=== PATIENT | female | born 1930 | race Caucasian/White ===

== ENCOUNTER 2017-06-19 20:40 | Inpatient (IN) | payer OTHER ==
[2017-06-19] MEDS ORDERED: NITROGLYCERIN (SL) 0.4 MG TAB SL (21:00)
[2017-06-19] MEDS: NITROGLYCERIN 2% 1 GM OINT PKT TD (21:03)
[2017-06-19] MEDS: ASPIRIN 81 MG TAB PO (21:03)
[2017-06-19 21:16] LABS: ABNORMAL IP MESSAGE 1; HEMATOCRIT 37.7 % (37.0-47.0); HEMOGLOBIN 12.2 g/dl (12.0-16.0); MEAN CORPUSCULAR HEMOGLOBIN 29.3 pg (29.0-33.0); MEAN CORPUSCULAR HGB CONC 32.4 g/dl (32.0-37.0); MEAN CORPUSCULAR VOLUME 90.6 fl (82.0-101.0); MEAN PLATELET VOLUME 9.7 fl (7.4-10.4); PLATELET COUNT 449 10^3/UL (140-415); RED BLOOD COUNT 4.16 10^6/ul (4.20-5.40); RED CELL DISTRIBUTION WIDTH 14.3 % (11.5-14.5)
[2017-06-19 21:16] LABS: WHITE BLOOD COUNT 15.4 10^3/ul (4.8-10.8)
[2017-06-19 21:26] LABS: ADD MAN DIFF? YES; POSITIVE DIFF @See below
[2017-06-19] MEDS: ONDANSETRON 4 MG INJ IV (21:31)
[2017-06-19] MEDS: morphine 4 MG/ML VIAL IV (21:31)
[2017-06-19 21:36] LABS: ANION GAP 12 (8-16); BLOOD UREA NITROGEN 15 mg/dl (7-20); CALCIUM 9.7 mg/dl (8.4-10.2); CARBON DIOXIDE 29 mmol/L (21-31); CHLORIDE 101 mmol/L (97-110); CREATININE 0.67 mg/dl (0.44-1.00); GLUCOSE 104 mg/dl (70-220); POTASSIUM 4.2 mmol/L (3.5-5.1); SODIUM 138 mmol/L (135-144)
[2017-06-19 21:47] LABS: TROPONIN-I 0.016 ng/ml (0.00-0.12)
[2017-06-19 22:02] LABS: ANISOCYTOSIS 1+ (0-0); BAND NEUTROPHILS #M 0.6 10^3/ul (0.0-0.6); BAND NEUTROPHILS % (M) 4 % (0-4); EOSINOPHILS % (M) 1 % (0-7); LYMPHOCYTES #M 1.2 10^3/ul (0.8-2.9); LYMPHOCYTES % (M) 8 % (15-51); MICROCYTOSIS 1+ (0-0); MONOCYTES % (M) 7 % (0-11); MYELOCYTES #M 0.4 10^3/ul (0.0-0.0); MYELOCYTES % (M) 3 % (0-0); PLATELET ESTIMATE INCREASED; POLYCHROMASIA 1+ (0-0); PROMYELOCYTES #M 0.3 10^3/ul (0-0); PROMYELOCYTES % (M) 2 % (0-0); SEG NEUT #M 11.6 10^3/ul (1.6-7.5); SEGMENTED NEUTROPHILS (M) % 75 % (39-77); SMUDGE%M 1 % (0-0)
[2017-06-19] MEDS ORDERED: VANCOMYCIN IV PER PHARMACY XX (22:30)
[2017-06-19] MEDS ORDERED: NACL 0.9% 3 ML SYG IV (22:30)
[2017-06-19] MEDS ORDERED: ACETAMINOPHEN 325 MG TAB PO (22:30)
[2017-06-19] MEDS ORDERED: ZOLPIDEM 5 MG TAB PO (22:30)
[2017-06-19] MEDS ORDERED: DOCUSATE SODIUM 100 MG CAP PO (22:30)
[2017-06-19] MEDS ORDERED: ONDANSETRON 4 MG INJ IV (22:30)
[2017-06-19] MEDS: CEFEPIME 1GM/50 ML (PMX) 50 ML IVPB (22:35)
[2017-06-19 23:03] LABS: LACTIC ACID 0.8 mmol/L (0.5-2.0)
[2017-06-19] MEDS: VANCOMYCIN 1 GM (PMX) 250 ML IVPB (23:52)
[2017-06-20 03:44] LABS: LACTIC ACID 1.1 mmol/L (0.5-2.0)
[2017-06-20 04:09] LABS: CREATINE KINASE < 20 IU/L (23-200)
[2017-06-20 04:19] LABS: CK-MB 0.45 ng/ml (0.0-2.4); TROPONIN-I 0.025 ng/ml (0.00-0.12)
[2017-06-20 06:27] LABS: WHITE BLOOD COUNT 13.4 10^3/ul (4.8-10.8)
[2017-06-20 06:27] LABS: ABNORMAL IP MESSAGE 1; HEMATOCRIT 30.9 % (37.0-47.0); HEMOGLOBIN 10.1 g/dl (12.0-16.0); MEAN CORPUSCULAR HEMOGLOBIN 29.6 pg (29.0-33.0); MEAN CORPUSCULAR HGB CONC 32.7 g/dl (32.0-37.0); MEAN CORPUSCULAR VOLUME 90.6 fl (82.0-101.0); MEAN PLATELET VOLUME 9.8 fl (7.4-10.4); PLATELET COUNT 378 10^3/UL (140-415); RED BLOOD COUNT 3.41 10^6/ul (4.20-5.40); RED CELL DISTRIBUTION WIDTH 14.5 % (11.5-14.5)
[2017-06-20 06:44] LABS: LACTIC ACID 0.6 mmol/L (0.5-2.0)
[2017-06-20] MEDS ORDERED: LEVOTHYROXINE 88 MCG TAB PO (07:00)
[2017-06-20 07:09] LABS: ANION GAP 19 (8-16); BLOOD UREA NITROGEN 13 mg/dl (7-20); CALCIUM 9.1 mg/dl (8.4-10.2); CARBON DIOXIDE 23 mmol/L (21-31); CHLORIDE 101 mmol/L (97-110); CREATININE 0.58 mg/dl (0.44-1.00); GLUCOSE 94 mg/dl (70-220); MAGNESIUM 1.6 mg/dl (1.7-2.5); POTASSIUM 4.3 mmol/L (3.5-5.1); SODIUM 139 mmol/L (135-144)
[2017-06-20 07:11] LABS: ADD MAN DIFF? YES; POSITIVE DIFF @See below
[2017-06-20] MEDS ORDERED: ENOXAPARIN 40 MG/0.4 ML SYG SC (09:00)
[2017-06-20 09:10] LABS: CREATINE KINASE < 20 IU/L (23-200)
[2017-06-20 09:14] LABS: CK-MB 0.42 ng/ml (0.0-2.4); TROPONIN-I 0.017 ng/ml (0.00-0.12)
[2017-06-20] MEDS: LEVOTHYROXINE 100 MCG TAB PO (09:21)
[2017-06-20] MEDS: ASPIRIN (EC) 81 MG TAB PO (09:21)
[2017-06-20] MEDS: CEFEPIME 1GM/50 ML (PMX) 50 ML IVPB ×2 (09:21→20:55)
[2017-06-20] MEDS: CLOPIDOGREL 75 MG TAB PO (10:20)
[2017-06-20 11:50] LABS: ANISOCYTOSIS 1+ (0-0); BAND NEUTROPHILS #M 0.5 10^3/ul (0.0-0.6); BAND NEUTROPHILS % (M) 4 % (0-4); BURR CELLS 2+ (0-0); EOSINOPHILS % (M) 3 % (0-7); GIANT THROMBO% (M) 2 % (0-0); LYMPHOCYTES #M 2.1 10^3/ul (0.8-2.9); LYMPHOCYTES % (M) 16 % (15-51); METAMYELOCYTES #M 0.1 10^3/ul (0.0-0.0); METAMYELOCYTES %M 1 % (0-0); MICROCYTOSIS 1+ (0-0); MONOCYTE #M 0.5 10^3/ul (0.3-0.9); MONOCYTES % (M) 4 % (0-11); MYELOCYTES #M 0.1 10^3/ul (0.0-0.0); MYELOCYTES % (M) 1 % (0-0); PLATELET ESTIMATE NORMAL; POIKILOCYTOSIS 2+ (0-0); POLYCHROMASIA 1+ (0-0); SEG NEUT #M 9.7 10^3/ul (1.6-7.5); SEGMENTED NEUTROPHILS (M) % 72 % (39-77); SMUDGE%M 4 % (0-0)
[2017-06-20] MEDS: SUCRALFATE (100 MG/ML) 10ML CUP GTB ×3 (13:05→20:55)
[2017-06-20] MEDS: MAGNESIUM SULFATE 2 GM/50 ML 50 ML IVPB (13:06)
[2017-06-20] MEDS: PANTOPRAZOLE (EC) 40 MG TAB PO (17:34)
[2017-06-20] MEDS: morphine 2 MG INJ IV (19:23)
[2017-06-20] MEDS: ATORVASTATIN 10 MG TAB PO (20:55)
[2017-06-20] MEDS: VANCOMYCIN 500MG/NS (PMX) 100 ML IVPB (22:42)
[2017-06-21] MEDS: PANTOPRAZOLE (EC) 40 MG TAB PO ×2 (06:12→18:19)
[2017-06-21] MEDS: LEVOTHYROXINE 100 MCG TAB PO (06:12)
[2017-06-21] MEDS: morphine 2 MG INJ IV ×4 (06:55→22:40)
[2017-06-21 07:11] LABS: WHITE BLOOD COUNT 12.9 10^3/ul (4.8-10.8)
[2017-06-21 07:11] LABS: ABNORMAL IP MESSAGE 1; HEMATOCRIT 35.3 % (37.0-47.0); HEMOGLOBIN 11.3 g/dl (12.0-16.0); MEAN CORPUSCULAR HEMOGLOBIN 29.8 pg (29.0-33.0); MEAN CORPUSCULAR VOLUME 93.1 fl (82.0-101.0); MEAN PLATELET VOLUME 9.8 fl (7.4-10.4); PLATELET COUNT 358 10^3/UL (140-415); RED BLOOD COUNT 3.79 10^6/ul (4.20-5.40); RED CELL DISTRIBUTION WIDTH 14.5 % (11.5-14.5)
[2017-06-21 07:12] LABS: ADD MAN DIFF? YES; POSITIVE DIFF @See below
[2017-06-21 09:40] LABS: ANISOCYTOSIS 2+ (0-0); BAND NEUTROPHILS #M 0.9 10^3/ul (0.0-0.6); BAND NEUTROPHILS % (M) 7 % (0-4); BASOPHIL #M 0.1 10^3/ul (0.0-0.0); BASOPHILS % (M) 1 % (0-2); EOSINOPHILS % (M) 4 % (0-7); GIANT THROMBO% (M) 1 % (0-0); LYMPHOCYTES #M 1.2 10^3/ul (0.8-2.9); LYMPHOCYTES % (M) 10 % (15-51); METAMYELOCYTES #M 0.3 10^3/ul (0.0-0.0); METAMYELOCYTES %M 3 % (0-0); MICROCYTOSIS 2+ (0-0); MONOCYTE #M 0.6 10^3/ul (0.3-0.9); MONOCYTES % (M) 5 % (0-11); MYELOCYTES #M 0.5 10^3/ul (0.0-0.0); MYELOCYTES % (M) 4 % (0-0); PLATELET ESTIMATE NORMAL; POIKILOCYTOSIS 1+ (0-0); POLYCHROMASIA 3+ (0-0); SEG NEUT #M 8.6 10^3/ul (1.6-7.5); SEGMENTED NEUTROPHILS (M) % 66 % (39-77)
[2017-06-21 09:41] LABS: INR 1.01; PROTIME 13.4 Sec (11.9-14.9)
[2017-06-21 09:42] LABS: ANION GAP 16 (8-16); BLOOD UREA NITROGEN 11 mg/dl (7-20); CALCIUM 9.2 mg/dl (8.4-10.2); CARBON DIOXIDE 29 mmol/L (21-31); CHLORIDE 99 mmol/L (97-110); CREATININE 0.64 mg/dl (0.44-1.00); GLUCOSE 98 mg/dl (70-220); MAGNESIUM 2.1 mg/dl (1.7-2.5); PARTIAL THROMBOPLASTIN TIME 31.5 Sec (25.0-35.0); SODIUM 140 mmol/L (135-144)
[2017-06-21] MEDS: CEFEPIME 1GM/50 ML (PMX) 50 ML IVPB ×2 (09:45→21:12)
[2017-06-21] MEDS: SUCRALFATE (100 MG/ML) 10ML CUP GTB ×4 (09:45→21:11)
[2017-06-21] MEDS: CLOPIDOGREL 75 MG TAB PO (09:45)
[2017-06-21] MEDS ORDERED: traMADol 50 MG TAB PO (14:00)
[2017-06-21 15:19] LABS: FREE T4 (FREE THYROXINE) 1.82 ng/dl (0.85-1.93)
[2017-06-21] MEDS: LIDOCAINE 1% (MDV) 10 ML INJ (15:29)
[2017-06-21 16:27] LABS: FLD MN% 81.4 %; FLD PMN% 18.6 %; FLD RBC 1000 /uL; FLD WBC 258 /cmm
[2017-06-21 17:41] LABS: FLD CLARITY CLOUDY; FLD COLOR YELLOW
[2017-06-21 17:41] LABS: FLD TYPE PLEURAL
[2017-06-21 17:44] LABS: FLUID LD 179 U/L
[2017-06-21 17:45] LABS: FLUID GLUCOSE 106 mg/dl; FLUID TOTAL PROTEIN 2.1 g/dl; FLUID TYPE THORACENTESIS FLUID
[2017-06-21 17:46] LABS: FLUID TYPE THORACENTESIS FLUID
[2017-06-21 17:52] LABS: TOTAL PROTEIN 2.1 g/dl (6.1-8.1)
[2017-06-21 17:52] LABS: LACTATE DEHYDROGENASE 179 IU/L (313-618)
[2017-06-21] MEDS: PROPRANOLOL 20 MG TAB PO (21:12)
[2017-06-21] MEDS: traZODone 50 MG TAB PO (21:12)
[2017-06-21] MEDS: ATORVASTATIN 10 MG TAB PO (21:12)
[2017-06-22] MEDS: VANCOMYCIN 500MG/NS (PMX) 100 ML IVPB ×2 (00:02→23:59)
[2017-06-22] MEDS: PANTOPRAZOLE (EC) 40 MG TAB PO ×2 (06:42→18:13)
[2017-06-22] MEDS: LEVOTHYROXINE 100 MCG TAB PO (06:42)
[2017-06-22 08:31] LABS: ABNORMAL IP MESSAGE 1; HEMATOCRIT 33.3 % (37.0-47.0); HEMOGLOBIN 10.6 g/dl (12.0-16.0); MEAN CORPUSCULAR HEMOGLOBIN 29.4 pg (29.0-33.0); MEAN CORPUSCULAR HGB CONC 31.8 g/dl (32.0-37.0); MEAN CORPUSCULAR VOLUME 92.5 fl (82.0-101.0); MEAN PLATELET VOLUME 10.4 fl (7.4-10.4); PLATELET COUNT 355 10^3/UL (140-415); RED CELL DISTRIBUTION WIDTH 14.5 % (11.5-14.5)
[2017-06-22 08:31] LABS: WHITE BLOOD COUNT 11.1 10^3/ul (4.8-10.8)
[2017-06-22 08:48] LABS: ANION GAP 11 (8-16); BLOOD UREA NITROGEN 12 mg/dl (7-20); CALCIUM 9.4 mg/dl (8.4-10.2); CARBON DIOXIDE 32 mmol/L (21-31); CHLORIDE 100 mmol/L (97-110); CREATININE 0.65 mg/dl (0.44-1.00); GLUCOSE 90 mg/dl (70-220); POTASSIUM 4.2 mmol/L (3.5-5.1); SODIUM 139 mmol/L (135-144)
[2017-06-22 08:50] LABS: ADD MAN DIFF? YES; POSITIVE DIFF @See below
[2017-06-22 08:51] LABS: MAGNESIUM 1.9 mg/dl (1.7-2.5)
[2017-06-22] MEDS: CLOPIDOGREL 75 MG TAB PO (09:06)
[2017-06-22] MEDS: PROPRANOLOL 20 MG TAB PO (09:06)
[2017-06-22] MEDS: SUCRALFATE (100 MG/ML) 10ML CUP GTB ×4 (09:06→21:37)
[2017-06-22] MEDS: CEFEPIME 1GM/50 ML (PMX) 50 ML IVPB ×2 (09:07→21:38)
[2017-06-22] MEDS: morphine 2 MG INJ IV (09:07)
[2017-06-22] MEDS: LACTOBACILLUS RHAMNOSUS CAP PO ×2 (13:33→21:38)
[2017-06-22] MEDS: METOPROLOL 25 MG TAB PO (21:37)
[2017-06-22] MEDS: ATORVASTATIN 10 MG TAB PO (21:37)
[2017-06-22] MEDS: traZODone 50 MG TAB PO (21:38)
[2017-06-22 23:51] LABS: VANCOMYCIN,TROUGH 5.4 ug/ml (10.0-20.0)
[2017-06-23] MEDS: morphine 2 MG INJ IV ×2 (01:34→22:02)
[2017-06-23] MEDS: PANTOPRAZOLE (EC) 40 MG TAB PO ×2 (06:27→17:07)
[2017-06-23] MEDS: LEVOTHYROXINE 100 MCG TAB PO (06:28)
[2017-06-23] MEDS: SUCRALFATE (100 MG/ML) 10ML CUP GTB ×4 (08:35→21:57)
[2017-06-23] MEDS: CLOPIDOGREL 75 MG TAB PO (08:36)
[2017-06-23] MEDS: LACTOBACILLUS RHAMNOSUS CAP PO ×2 (08:36→21:57)
[2017-06-23] MEDS: ACETAMINOPHEN 325 MG TAB PO ×2 (08:36→17:07)
[2017-06-23] MEDS: METOPROLOL 25 MG TAB PO ×2 (08:36→21:56)
[2017-06-23 09:20] LABS: ADD MAN DIFF? NO
[2017-06-23] MEDS: CEFEPIME 1GM/50 ML (PMX) 50 ML IVPB ×2 (09:33→21:57)
[2017-06-23 09:36] LABS: WHITE BLOOD COUNT 10.8 10^3/ul (4.8-10.8)
[2017-06-23 09:36] LABS: BASOPHILS % 0.3 % (0.0-2.0); EOSINOPHILS # 0.3 10^3/ul (0.0-0.5); EOSINOPHILS % 2.4 % (0.0-7.0); HEMATOCRIT 32.7 % (37.0-47.0); HEMOGLOBIN 10.6 g/dl (12.0-16.0); LYMPHOCYTES # 1.2 10^3/ul (0.8-2.9); LYMPHOCYTES % 10.8 % (15.0-51.0); MEAN CORPUSCULAR HEMOGLOBIN 29.7 pg (29.0-33.0); MEAN CORPUSCULAR HGB CONC 32.4 g/dl (32.0-37.0); MEAN CORPUSCULAR VOLUME 91.6 fl (82.0-101.0); MEAN PLATELET VOLUME 10.2 fl (7.4-10.4); MONOCYTE # 0.9 10^3/ul (0.3-0.9); MONOCYTES % 8.4 % (0.0-11.0); NEUTROPHIL # 7.9 10^3/ul (1.6-7.5); NEUTROPHILS % 73.6 % (39.0-77.0); PLATELET COUNT 329 10^3/UL (140-415); RED BLOOD COUNT 3.57 10^6/ul (4.20-5.40); RED CELL DISTRIBUTION WIDTH 14.4 % (11.5-14.5)
[2017-06-23 09:49] LABS: ANION GAP 14 (8-16); BLOOD UREA NITROGEN 11 mg/dl (7-20); CALCIUM 9.5 mg/dl (8.4-10.2); CARBON DIOXIDE 31 mmol/L (21-31); CHLORIDE 97 mmol/L (97-110); CREATININE 0.68 mg/dl (0.44-1.00); GLUCOSE 97 mg/dl (70-220); POTASSIUM 3.4 mmol/L (3.5-5.1); SODIUM 139 mmol/L (135-144)
[2017-06-23 09:55] LABS: MAGNESIUM 1.8 mg/dl (1.7-2.5)
[2017-06-23 09:55] LABS: PHOSPHORUS 3.7 mg/dl (2.5-4.9)
[2017-06-23] MEDS: MAGNESIUM SULFATE 2 GM/50 ML 50 ML IVPB (10:53)
[2017-06-23] MEDS: POTASSIUM CHLORIDE (SR) 20 MEQ TAB PO (10:53)
[2017-06-23] MEDS: VANCOMYCIN 500MG/NS (PMX) 100 ML IVPB ×2 (12:33→23:55)
[2017-06-23] MEDS: traZODone 50 MG TAB PO (21:57)
[2017-06-23] MEDS: ATORVASTATIN 10 MG TAB PO (21:57)
[2017-06-24] MEDS: PANTOPRAZOLE (EC) 40 MG TAB PO ×2 (06:24→17:04)
[2017-06-24] MEDS: LEVOTHYROXINE 100 MCG TAB PO (06:25)
[2017-06-24] MEDS: SUCRALFATE (100 MG/ML) 10ML CUP GTB ×3 (08:37→17:04)
[2017-06-24] MEDS: LACTOBACILLUS RHAMNOSUS CAP PO (08:38)
[2017-06-24] MEDS: METOPROLOL 25 MG TAB PO (08:38)
[2017-06-24] MEDS: CLOPIDOGREL 75 MG TAB PO (08:38)
[2017-06-24] MEDS: LISINOPRIL 5 MG TAB PO (08:39)
[2017-06-24] MEDS: CEFEPIME 1GM/50 ML (PMX) 50 ML IVPB (08:39)
[2017-06-24] MEDS: VANCOMYCIN 500MG/NS (PMX) 100 ML IVPB (11:37)
[2017-06-24] MEDS: morphine 2 MG INJ IV ×2 (11:37→17:45)
[2017-06-24 13:17] LABS: ADD MAN DIFF? NO
[2017-06-24 13:19] LABS: WHITE BLOOD COUNT 12.3 10^3/ul (4.8-10.8)
[2017-06-24 13:19] LABS: BASOPHILS % 0.2 % (0.0-2.0); EOSINOPHILS # 0.4 10^3/ul (0.0-0.5); HEMATOCRIT 32.9 % (37.0-47.0); HEMOGLOBIN 10.5 g/dl (12.0-16.0); LYMPHOCYTES # 0.8 10^3/ul (0.8-2.9); LYMPHOCYTES % 6.5 % (15.0-51.0); MEAN CORPUSCULAR HEMOGLOBIN 29.7 pg (29.0-33.0); MEAN CORPUSCULAR HGB CONC 31.9 g/dl (32.0-37.0); MEAN CORPUSCULAR VOLUME 93.2 fl (82.0-101.0); MEAN PLATELET VOLUME 10.2 fl (7.4-10.4); MONOCYTE # 0.9 10^3/ul (0.3-0.9); MONOCYTES % 7.7 % (0.0-11.0); NEUTROPHIL # 9.9 10^3/ul (1.6-7.5); NEUTROPHILS % 80.4 % (39.0-77.0); PLATELET COUNT 302 10^3/UL (140-415); RED BLOOD COUNT 3.53 10^6/ul (4.20-5.40); RED CELL DISTRIBUTION WIDTH 14.6 % (11.5-14.5)
[2017-06-24 13:37] LABS: ANION GAP 13 (8-16); BLOOD UREA NITROGEN 16 mg/dl (7-20); CALCIUM 9.2 mg/dl (8.4-10.2); CARBON DIOXIDE 28 mmol/L (21-31); CHLORIDE 103 mmol/L (97-110); CREATININE 0.76 mg/dl (0.44-1.00); GLUCOSE 111 mg/dl (70-220); MAGNESIUM 2.1 mg/dl (1.7-2.5); POTASSIUM 4.2 mmol/L (3.5-5.1); SODIUM 140 mmol/L (135-144)
[2017-06-24] MEDS: POTASSIUM CHLORIDE (SR) 20 MEQ TAB PO (14:07)
[2017-06-28 04:38] LABS: BODY FLUID Pleural fluid
== END 2017-06-24 19:10 | DRG 178 ==
LOC: TEL 22:05 → E/R 20:40
PROC: 0W993ZX Drainage of Right Pleural Cavity, Percutaneous Approach, Diagnostic (ICD-10-PCS; principal; 2017-06-23 12:35)
PROC: B245ZZ4 Ultrasonography of Left Heart, Transesophageal (ICD-10-PCS; 2017-06-23 12:35)
DX: J69.0 Pneumonitis due to inhalation of food and vomit (principal); I50.32 Chronic diastolic (congestive) heart failure; J91.8 Pleural effusion in other conditions classified elsewhere; I05.9 Rheumatic mitral valve disease, unspecified; I25.10 Atherosclerotic heart disease of native coronary artery without angina pectoris; E03.9 Hypothyroidism, unspecified; K27.9 Peptic ulcer, site unspecified, unspecified as acute or chronic, without hemorrhage or perforation; K52.9 Noninfective gastroenteritis and colitis, unspecified; I11.0 Hypertensive heart disease with heart failure; Z85.72 Personal history of non-Hodgkin lymphomas
CPT/HCPCS: 36415; 71045; 71250; 76942; 80048; 80202; 82550; 82553; 82945; 83605; 83615; 83735; 83986; 84100; 84155; 84157; 84439; 84443; 84484; 85025; 85610; 85730; 87040; 87070; 87102; 87116; 88104; 88305; 89051; 93005; 93306; 93312; 96374; 96375; 97116; 97161; 99285-25